=== PATIENT | female | born 1960 | race Caucasian/White ===

== ENCOUNTER 2016-05-11 16:26 | Emergency (ER) | payer OTHER ==
[~2016-05-11] VITALS: Ht 157.5 cm; Wt 68.8 kg
[2016-05-11 16:29] VITALS: Ht 157.5 cm; Wt 68.8 kg
[2016-05-11] MEDS ORDERED: IBUP-1542 PO (16:47)
[2016-05-11] MEDS ORDERED: AMO500 PO (16:47)
--- NOTE | 2016-05-11 17:11 | ERD ---
ER Documentation Chief Complaint Date/Time DATE: 05/11/16 TIME: 17:08 Chief Complaint SORE THROAT AND SWOLLEN LYMPH NODES X 3 DAYS HPI 55-year-old female with a past medical history of diabetes presents to the ED complaining of sore throat that started 3 days ago. States that she also had reported tactile fevers at home. States that she has been taking NyQuil which has been helping her with her sleep. Reports that she took 1 dose of her friend 's penicillin yesterday and states that it did not help with her symptoms. States that she is taking metformin and glimepiride. Reports that she has normal blood sugars at home. States that she is still able to swallow and can tolerate oral intake. Denies any neck stiffness, neck pain, abdominal pain, nausea, vomiting, chest pain, shortness of breath. ROS All systems reviewed and are negative except as per history of present illness. Medications Home Meds Active Scripts Ibuprofen* (Motrin*) 600 Mg Tab, 600 MG PO Q6, #30 TAB take with food Prov:JERONIMO WASHINGTON PA-C 05/11/16 Amoxicillin* (Amoxicillin*) 500 Mg Cap, 500 MG PO TID for 10 Days, CAP Prov:JERONIMO WASHINGTON PA-C 05/11/16 Allergies Allergies: Coded Allergies: No Known Allergy (Unverified , 05/11/16) Physical Exam Vitals Vital Signs Date Time Temp Pulse Resp B/P Pulse Ox O2 Delivery O2 Flow Rate FiO2 05/11/16 16:29 97.6 73 20 156/66 97 Physical Exam Const: Ijz-osu-avrixkesx, well-nourished. In no acute distress. Head: Atraumatic, normocephalic Eyes: Normal Conjunctiva without injection. No purulent discharge. PERRL. EOMI ENT: Normal external ear. Ear canal without erythema. Tympanic membrane pearly jackson without effusion or bulging. Nasal canal clear with normal turbinates. Moist oropharynx with slight tonsillar exudates. Erythematous posterior pharynx. Uvula midline. No drooling. No trismus. Neck: Full range of motion. No meningismus. No cervical lymphadenopathy. Resp: Clear to auscultation bilaterally. No wheezing, rhonchi, rales, or crackles. No accessory muscle use. No retractions. Cardio: Regular rate and rhythm. No murmurs, rubs or gallops. Abd: Soft, non tender, non distended. Normal bowel sounds. No palpable masses. No rebound tenderness. No guarding. Skin: No petechiae or rashes Back: No midline tenderness. No CVA tenderness. Ext: No cyanosis, or edema. Neur: Awake and alert. Psych: Normal Mood and Affect Procedures/MDM This is a 55-year-old female with a past medical history of diabetes presents to the ED complaining of sore throat associated with tactile fever that started 3 days ago. Patient is afebrile and nontoxic-appearing. Patient's physical exam is consistent with presumed strep pharyngitis. Based on Cent[facility]'s Criteria , patient has reported fever at home, erythematous tonsils with slight exudates , no cough. Patient is appropriate for outpatient antibiotics. Patient's physical exam include lungs which were clear to auscultation and a normal pulse oximetry. Bilateral ears pearly maddox. No tenderness to palpation of tragus or mastoid. Low suspicion for mastoiditis, otitis externa, otitis media. Patient is speaking in full sentences. There is a low suspicion for pneumonia, epiglottitis, croup, sinusitis, peritonsillar abscess, retropharyngeal abscess, meningitis, Luis's angina, sepsis, acute abdomen or other emergent conditions. Discharge medications: Amoxicillin, ibuprofen Follow up with primary care physician in 1-2 days. Instructed patient to return to the ED sooner for any worsening symptoms. Patient's questions were answered. Patient understood and agreed with discharge plan. Patient discharged stable. Departure Diagnosis: Primary Impression: Sore throat Condition: Stable Patient Instructions: Self-Care for Sore Throats, Pharyngitis, Strep (Presumed) Referrals: [facility] Usted se perez hecho un examen mdico de control que le indica que no est en jany condicin que requiera tratamiento urgente en el Departamento de Emergencia. Un estudio ms profundo y el tratamiento de stafford condicin pueden esperar sin ningn riesgo hasta que usted sea atendida/o en el consultorio de stafford mdico o jany cl anuj. Es responsabilidad suya arreglar jany mikey para el seguimiento del iain. MANEJO DE CONDICIONES NO URGENTES EN EL FUTURO 1) Si usted tiene un mdico de atencin primaria: Usted debera llamar a stafford mdico de atencin primaria antes de venir al departamento de emergencia. Despus de las horas de consultorio, stafford doctor o stafford asociado/a est disponible por telfono. El mdico o enfermero de nadine en el servicio telefnico puede asesorarle por krystle medio para atender el problema, o iain contrario se puede programar jany mikey. 2) Si usted no tiene un mdico de atencin primaria: Llame al mdico o clnica de referencia que aparece abajo cassandra las horas de consultorio para hacer jany mikey para que le vean. CLINICAS: [facility] [phone] [facility] [phone] [facility] [phone] [address] [facility]. [facility] [phone] [address] [facility] [facility] [phone] [address] [facility]. [phone] [address] [facility]. [facility] () Usted se perez hecho un examen mdico de control que le indica que no est en jany condicin que requiera tratamiento urgente en el Departamento de Emergencia. Un estudio ms profundo y el tratamiento de stafford condicin pueden esperar sin ningn riesgo hasta que usted sea atendida/o en el consultorio de stafford mdico o jany cl anuj. Es responsabilidad suya arreglar jany mikey para el seguimiento del iain. MANEJO DE CONDICIONES NO URGENTES EN EL FUTURO 1) Si usted tiene un mdico de atencin primaria: Usted debera llamar a stafford mdico de atencin primaria antes de venir al departamento de emergencia. Despus de las horas de consultorio, stafford doctor o stafford asociado/a est disponible por telfono. El mdico o enfermero de nadine en el servicio telefnico puede asesorarle por krystle medio para atender el problema, o iain contrario se puede programar jany mikey. 2) Si usted no tiene un mdico de atencin primaria: Llame al mdico o condado institucions de referencia que aparece abajo cassandra las horas de consultorio para hacer jany mikey para que le vean. SI USTED NO PUEDE PAGAR PARA NOAH UN MEDICO puede ir a: [facility] [address] [place] [address] [facility] [address] [place] [address] [facility] [address] [place] [address] [facility] [address] [place], [place] [id number] Additional Instructions: Llame al doctor MAANA y beau jany MIKEY PARA DENTRO DE 1-2 SWEENEY.Dgale a la secretaria que nosotros le instruimos hacer esta mikey.Avise o llame si stafford condicin se empeora antes de la mikey. Regresa aqui si peor o no mejor. JERONIMO WASHINGTON PA-C May 11, 2016 17:11
== END 2016-05-11 16:49 | disposition home or self-care (01) ==
LOC: E/R 16:26
DX: J02.9 Acute pharyngitis, unspecified (principal)
CPT/HCPCS: 99283

== ENCOUNTER 2018-01-20 13:10 | Emergency (ER) | END 2018-01-21 01:47 ==

== ENCOUNTER 2018-05-13 14:30 | Emergency (ER) | payer OTHER ==
[~2018-05-13] VITALS: Ht 160 cm; Wt 76.0 kg
[~2018-05-13 14:30] MED LIST: GLIM4TAB55 PO; MTF1000T PO
[2018-05-13 15:00] VITALS: Ht 160 cm; Wt 76.0 kg
--- NOTE | 2018-05-13 16:03 | ERD ---
ER Documentation Chief Complaint Chief Complaint Fever, sore throat, cough body aches X 1 wk HPI 57-year-old female, with history of diabetes, presents to the emergency department, complaining of upper respiratory symptoms for 1 week, including fever, sore throat, dry cough and general malaise. Today, the patient is requesting a prescription for antibiotics. The patient denies chest pain, no shortness of breath, no difficulty swallowing. ROS All systems reviewed and are negative except as per history of present illness. Medications Home Meds Active Scripts Ibuprofen* (Motrin*) 600 Mg Tab, 600 MG PO Q8, #15 TAB Prov:GILMA TRIPP MD 05/13/18 Benzonatate* (Tessalon Perle*) 100 Mg Capsule, 100 MG PO Q8H PRN for COUGH, #15 CAP Prov:GILMA TRIPP MD 05/13/18 Azithromycin* (Zithromax*) 250 Mg Tablet, 250 MG PO .ZPACK DIRECTED, #6 TAB TAKE 500 MG (2 TABS) THE FIRST DAY THEN 250 MG (1 TAB) DAYS 2-5 Prov:GILMA TRIPP MD 05/13/18 Reported Medications Glimepiride* (Amaryl*) 4 Mg Tablet, 4 MG PO BID WITH MEALS, TAB 01/20/18 Metformin* (Glucophage*) 1,000 Mg Tablet, 1000 MG PO BID, #60 TAB 01/20/18 Allergies Allergies: Coded Allergies: No Known Allergy (Unverified , 05/11/16) PMhx/Soc Anesthesia Reaction: No Hx Neurological Disorder: No Hx Respiratory Disorders: No Hx Cardiac Disorders: Yes (HTN, HYPERLIPIDEMIA) Hx Psychiatric Problems: Yes (ANXIETY DEPRESSION) Hx Miscellaneous Medical Probl: No Hx Alcohol Use: Yes (drank alcohol today) Hx Substance Use: No Hx Tobacco Use: No Smoking Status: Never smoker FmHx Family History: diabetes; No coronary disease Physical Exam Vitals Vital Signs Date Temp Pulse Resp B/P (MAP) Pulse Ox O2 O2 Flow FiO2 Time Delivery Rate 05/13/18 98.6 73 18 147/70 100 15:00 (95) Physical Exam Const: No acute distress Head: Atraumatic Eyes: Normal Conjunctiva ENT: Normal External Ears, Nose and Mouth. Neck: Full range of motion. No meningismus. Resp: Clear to auscultation bilaterally Cardio: Regular rate and rhythm, no murmurs Abd: Soft, non tender, non distended. Normal bowel sounds Skin: No petechiae or rashes Back: No midline or flank tenderness Ext: No cyanosis, or edema Neur: Awake and alert Psych: Normal Mood and Affect Procedures/MDM Differential diagnosis include but not limited to: Respiratory infection bacterial/viral/fungal. Asthma, pneumonitis, allergies, GERD. Less likely foreign body aspiration, cardiac related, aspiration pneumonia, malignancy. Physical examination and clinical presentation consistent most likely with viral syndrome. During the ED course the patient remained stable, no new complaints. Clinical impression discussed with the patient who agrees with management. The patient is stable to be treated outpatient and will be discharged home. Antibiotics not indicated at this time. The patient is requesting a p rescription for antibiotics, a prescription will be given with instructions to continue symptomatic and conservative management for 3 days, trying to avoid use of unnecessary antibiotics due to the possible side effects and complications. if there is no improvement of the symptoms in 72 hours, okay to start antibiotics. some side effects of prescribed medications (headache, rash, nausea, vomiting, diarrhea, drowsiness, hypertension, interactions with other medications) were reviewed. The patient was instructed to follow up with the primary care provider in the next 48h. If symptoms persist, worsen or new symptoms develop, then patient should return to the ED immediately. Disclaimer: Inadvertent spelling and grammatical errors are likely due to EHR/dictation software use and do not reflect on the overall quality of patient care. Also, please note that the electronic time recorded on this note does not necessarily reflect the actual time of the patient encounter. Departure Diagnosis: Primary Impression: Cough Condition: Stable Additional Instructions: Muchas lucius por [facility] para stafford servicio. Esperamos que en stafford visita a la jessica de emergencia stafford problema medico haya sido solucionado y que se sienta mucho mejor. Para estar seguros que stafford mejoria sigue en proceso, le pedimos el favor de hacer jany dayne de seguimiento medico con stafford doctor primario en los proximos 2-4 castro. Lleve con usted estos documentos y las medicinas recetadas. Si shalini sintomas empeoran, NO SE ESPERE, por favor regrese a jessica de emergencia INMEDIATAMENTE. En iain que usted no tenga un mdico de atencin primaria: Llame al mdico o clnica comunitaria de referencia que aparece abajo cassandra las horas de consultorio para hacer jany dayne para que le vean. CLINICAS: [facility] [phone] [address] [facility] [phone] [facility] [phone] [facility] [phone] [facility] [phone] [facility] [phone] GILMA KUMARI MD May 13, 2018 16:03
[2018-05-13] MEDS ORDERED: AZIT250T PO (16:17)
[2018-05-13] MEDS ORDERED: IBUP-1542 PO (16:17)
[2018-05-13] MEDS ORDERED: BENZ-6 PO (16:17)
[2018-05-13 16:28] VITALS: BP 133/78; PULSE 77; RESP 18
== END 2018-05-13 16:29 | disposition home or self-care (01) ==
LOC: FTE 14:30
DX: R05 Cough (principal); I10 Essential (primary) hypertension; E11.9 Type 2 diabetes mellitus without complications; Z79.84 Long term (current) use of oral hypoglycemic drugs
CPT/HCPCS: 99283